=== PATIENT | female | born 1930 | race American Indian/Alaskan Native ===

== ENCOUNTER 2020-11-09 22:37 | Emergency (ER) | payer MEDICARE ==
--- NOTE | 2020-11-09 22:53 | Emergency Department Report ---
ED Fall HPI - General Stated Complaint: FALL/HEAD INJURY Time Seen by Provider: 11/09/20 22:42 Source: patient, old records reviewed (SNF records) Mode of arrival: Stretcher Limitations: No Limitations - History of Present Illness Initial Comments: Chief complaint: "I fell straight backwards." HPI: This is an 89-year-old female who presents with fall. Patient stood up and fell backwards. She struck her head on air conditioning unit. She has headache in the posterior region. She has neck pain, right shoulder pain, right rib cage pain. According to records provided per [facility] patient has history of dementia hypertension anxiety disorder constipation hyperlipidemia. Patient resides at [facility]. I have reviewed medications. Order also states that patient is DO NOT RESUSCITATE status. 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 Fall Witnessed: yes, by living facility s Place Fall Occurred: [facility] Prolonged Down Time?: no Symptoms Prior to Fall: none Location: head, neck, other (Right rib cage right shoulder) Severity: mild Quality: dull Context: tripped/slipped Associated Symptoms: headache, neck pain, other (Right shoulder right rib cage) - Related Data Previous Rx's Medication Instructions Recorded Last Taken Type oxyCODONE /ACETAMINOPHEN [Percocet 1 tab PO Q4HR PRN #20 tab 11/10/20 Unknown Rx 5/325] Allergies Allergy/AdvReac Type Severity Reaction Status Date / Time No Known Allergies Allergy Verified 11/10/20 00:00 ED Review of Systems ROS: Stated complaint: FALL/HEAD INJURY Other details as noted in HPI Comment: All other systems reviewed and negative Constitutional: denies: fever, malaise Respiratory: denies: cough, shortness of breath Cardiovascular: chest pain (Right rib cage) Gastrointestinal: denies: abdominal pain, nausea, vomiting Musculoskeletal: denies: back pain Neurological: denies: headache ED Past Medical Hx - Past Medical History Previous Medical History?: Yes Hx Hypertension: Yes Hx Psychiatric Treatment: Yes (Anxiety) Additional medical history: Dementia - Surgical History Additional Surgical History: Unable to obtain - Family History Family history: other (Noncontributory) - Social History Smoking Status: Unknown if ever smoked - Medications Home Medications: Home Medications Medication Instructions Recorded Confirmed Last Taken Type oxyCODONE /ACETAMINOPHEN [Percocet 1 tab PO Q4HR PRN #20 tab 11/10/20 Unknown Rx 5/325] ED Physical Exam - General Limitations: Other (Patient has history of dementia but is alert oriented to person place situation) General appearance: alert, in no apparent distress - Head Head exam: Present: atraumatic, normocephalic - Eye Eye exam: Present: normal appearance - ENT ENT exam: Present: mucous membranes moist - Neck Neck exam: Present: normal inspection, full ROM. Absent: tenderness, meningismus - Respiratory Respiratory exam: Present: normal lung sounds bilaterally, other (Tenderness in the anterior axillary line lateral to right breast). Absent: respiratory distress, wheezes, rales, rhonchi - Cardiovascular Cardiovascular Exam: Present: regular rate, normal rhythm, normal heart sounds. Absent: bradycardia, tachycardia, systolic murmur, diastolic murmur, rubs, gallop - GI/Abdominal GI/Abdominal exam: Present: soft, normal bowel sounds. Absent: distended, tenderness, guarding, rebound - Expanded Upper Extremity Exam Right Shoulder Exam: Present: full ROM, tenderness. Absent: swelling, abrasion, laceration, ecchymosis, deformity, crepidus, dislocation, erythema, tenderness over AC joint Upper Arm exam: Present: normal inspection, full ROM. Absent: tenderness, swe lling, abrasion, laceration, ecchymosis, deformity Elbow exam: Present: normal inspection, full ROM Forearm Wrist exam: Present: normal inspection, full ROM Hand Wrist exam: Present: normal inspection, full ROM - Back Exam Back exam: Present: normal inspection - Neurological Exam Neurological exam: Present: alert, other (Oriented to person place situation) - Psychiatric Psychiatric exam: Present: normal affect, normal mood - Skin Skin exam: Present: warm, dry, intact, normal color. Absent: rash ED Course Vital Signs 11/09/20 11/09/20 11/09/20 22:45 22:47 23:01 Temperature 98.3 F Pulse Rate 74 70 69 Respiratory 12 16 16 Rate Blood Pressure 180/96 168/98 Blood Pressure 180/99 [Left] O2 Sat by Pulse 98 97 98 Oximetry 11/09/20 11/09/20 11/10/20 23:15 23:45 00:01 Temperature Pulse Rate 68 70 70 Respiratory 12 15 Rate Blood Pressure 154/85 Blood Pressure [Left] O2 Sat by Pulse 97 97 98 Oximetry 11/10/20 11/10/20 00:11 00:12 Temperature Pulse Rate Respiratory 18 18 Rate Blood Pressure Blood Pressure [Left] O2 Sat by Pulse Oximetry ED Medical Decision Making - Radiology Data Radiology results: report reviewed Patient Name: PRAKASH REYNA Gender: Female Date of : 1930 Referring Provider: KELSEY MELTON Organization: [facility] Accession Number: [id number] Requested Date: November 09, 2020 22:48 Report Status: Final Requested Procedure: 1 Procedure Description: XR shoulder 2+V RT Modality: XR Findings Reporting MD: Wil Lam Dictation Time: November 09, 2020 22:26 Brickmason Contractor: Not available Numerical Analysis Group Manager Date: XR shoulder 2+V RT INDICATION / CLINICAL INFORMATION: shoulder pain fall. COMPARISON: None available. FINDINGS: No acute fracture of the shoulder. There are at least 3 few right lateral rib fractures. No pneumothorax identified. Normal alignment. Osteoarthrosis.No destructive osseous lesion or suspicious periosteal reaction. Impression: 1. Mildly displaced right lateral rib fractures. 2. No acute fracture or dislocation of the shoulder. Signer Name: Wil Lam MD Signed: 11/09/2020 10:26 PM Workstation Name: [id number] Patient Name: PRAKASH REYNA Gender: Female Date of : 1930 Referring Provider: KELSEY MELTON Organization: [facility] Accession Number: [id number] Requested Date: November 09, 2020 23:32 Report Status: Final Requested Procedure: 1 Procedure Description: CT head/brain wo con Modality: CT Findings Reporting MD: Wil Lam Dictation Time: November 09, 2020 23:05 Brickmason Contractor: Not available Numerical Analysis Group Manager Date: CT head/brain wo con, CT cervical spine wo con INDICATION: Pt fell backwards hitting head on an air conditioner, head pain. TECHNIQUE: CT head and cervical spine without contrast. All CT scans at this location are performed using CT dose reduction for ALARA by means of automated exposure control. COMPARISON: None. 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 Stern-white matter differentiation is maintained. No intracranial hemorrhage. No extra axial collection.. No hydrocephalus. No herniation. Sinuses: Paranasal sinuses and mastoid air cells are essentially clear. Orbits: Globes are intact Calvarium: No acute fracture. CERVICAL: Alignment: 2 mm degenerative anterolisthesis of C3 on C4 and 2 mm degenerative retrolisthesis of C4 on C5 and C5 on C6. Vertebrae: No fracture. Vertebral body heights are preserved. C1 and C2 are congruent. Atlantooccipital joint is maintained. Spondylolysis: Diffuse spondylosis with multilevel high-grade foraminal narrowing. Soft tissues: No prevertebral soft tissue thickening. Additional findings: No significant additional findings. IMPRESSION: 1. No acute intracranial abnormality. 2.No cervical spine fracture. Signer Name: Wil Lam MD [facility] [address] , [address] [place] [address] P [phone] F [phone] [facility] - Report exported on Nov 09, 2020 23:16:16 -0500 - Page 2 of 2 Signed: 11/09/2020 11:05 PM Workstation Name: [id number] Patient Name: PRAKASH REYNA Gender: Female Date of : 1930 Referring Provider: KELSEY MELTON Organization: [facility] Accession Number: [id number] Requested Date: November 09, 2020 23:47 Report Status: Final Requested Procedure: 1 Procedure Description: CT chest wo con Modality: CT Findings Reporting MD: Wil Lam Dictation Time: November 09, 2020 23:17 Brickmason Contractor: Not available Numerical Analysis Group Manager Date: CT chest wo con HISTORY: Fell backwards hitting head on an air conditioner, shoulder pain COMPARISON: None. TECHNIQUE: Chest CT exam. All CT scans at this location are performed using CT dose reduction for ALARA by means of automated exposure control. FINDINGS: CT CHEST: Lungs: Bilateral dependent atelectasis. Trachea and Bronchi: No significant abnormality. Mediastinum/Lymph nodes: No lymphadenopathy. Heart: Cardiac enlargement. Multivessel coronary atherosclerotic calcific effusions are present. Vasculature: Ascending aortic dilation measuring 4.2 cm.. Osseous Structures: Displaced right fourth through eighth lateral and posterior rib fractures. The sixth, seventh, and eighth ribs are fractured in both the posterior and lateral aspects. Additional Findings: None IMPRESSION: 1. Right mid segmental rib fractures, can correlate for flail chest. No pneumothorax. Signer Name: Wil Lam MD Signed: 11/09/2020 11:17 PM Workstation Name: [id number] - Medical Decision Making This is an 89-year-old female presents status post mechanical fall at [facility]. 1. Multiple rib fractures right-sided ribs 4 through 8: No evidence of flail chest on exam. Patient has normal vital signs. She appears comfortable without respiratory distress. Pulse ox 99% on room air. Heart rate 69 bpm respiratory rate 12 breaths/min. 2. Closed head injury: CT head indicated due to age: No evidence of traumatic intracranial abnormality 3. CT cervical spine ruled out cervical spine fracture indicated due to sistracting injury rib fractures 4. Right shoulder contusion without dislocation or fracture Patient is [facility] back to [facility] prescription for Percocet Critical care attestation.: If time is entered above; I have spent that time in minutes in the direct care of this critically ill patient, excluding procedure time. ED Disposition Clinical Impression: Multiple fractures of rib involving four or more ribs, Closed head injury, Cervical sprain, Contusion of right shoulder, Fall Disposition: [id number]/TX-70 ANOTHER TYPE HLTHCARE Is pt being admited?: No Does the pt Need Aspirin: No Condition: Stable Instructions: Rib Fracture Prescriptions: oxyCODONE /ACETAMINOPHEN [Percocet 5/325] 1 tab PO Q4HR PRN #20 tab PRN Reason: Pain , Severe (7-10)
[2020-11-09] MEDS ORDERED: IBUPROFEN 800 MG TAB PO ONE (22:55)
[2020-11-09] MEDS ORDERED: oxyCODONE /ACETAMINOPHEN 5-325MG TAB PO ONE (22:55)
--- NOTE | 2020-11-09 23:31 | XRay Report ---
XR shoulder 2+V RT INDICATION / CLINICAL INFORMATION: shoulder pain fall. COMPARISON: None available. FINDINGS: No acute fracture of the shoulder. There are at least 3 few right lateral rib fractures. No pneumotho rax identified. Normal alignment. Osteoarthrosis.No destructive osseous lesion or suspicious periost eal reaction. Impression: 1. Mildly displaced right lateral rib fractures. 2. No acute fracture or dislocation of the shoulder. Signer Name: Wil Lam MD Signed: 11/09/2020 11:26 PM Workstation Name: [id number]
--- NOTE | 2020-11-10 00:09 | Cat Scan Report ---
CT head/brain wo con, CT cervical spine wo con INDICATION: Pt fell backwards hitting head on an air conditioner, head pain. TECHNIQUE: CT head and cervical spine without contrast. All CT scans at this location are performed u sing CT dose reduction for ALARA by means of automated exposure control. COMPARISON: None. 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 Stern-white matter dif ferentiation is maintained. No intracranial hemorrhage. No extra axial collection.. No hydrocephalus. No herniation. Sinuses: Paranasal sinuses and mastoid air cells are essentially clear. Orbits: Globes are intact Calvarium: No acute fracture. CERVICAL: Alignment: 2 mm degenerative anterolisthesis of C3 on C4 and 2 mm degenerative retrolisthesis of C4 o n C5 and C5 on C6. Vertebrae: No fracture. Vertebral body heights are preserved. C1 and C2 are congruent. Atlantooccipi braulio joint is maintained. Spondylolysis: Diffuse spondylosis with multilevel high-grade foraminal narrowing. Soft tissues: No prevertebral soft tissue thickening. Additional findings: No significant additional findings. IMPRESSION: 1. No acute intracranial abnormality. 2.No cervical spine fracture. Signer Name: Wil Lam MD Signed: 11/10/2020 12:05 AM Workstation Name: [id number]
--- NOTE | 2020-11-10 00:21 | Cat Scan Report ---
CT chest wo con HISTORY: Fell backwards hitting head on an air conditioner, shoulder pain COMPARISON: None. TECHNIQUE: Chest CT exam. All CT scans at this location are performed using CT dose reduction for ALA RA by means of automated exposure control. FINDINGS: CT CHEST: Lungs: Bilateral dependent atelectasis. Trachea and Bronchi: No significant abnormality. Mediastinum/Lymph nodes: No lymphadenopathy. Heart: Cardiac enlargement. Multivessel coronary atherosclerotic calcific effusions are present. Vasculature: Ascending aortic dilation measuring 4.2 cm.. Osseous Structures: Displaced right fourth through eighth lateral and posterior rib fractures. The si xth, seventh, and eighth ribs are fractured in both the posterior and lateral aspects. Additional Findings: None IMPRESSION: 1. Right mid segmental rib fractures, can correlate for flail chest. No pneumothorax. Signer Name: Wil Lam MD Signed: 11/10/2020 12:17 AM Workstation Name: [id number]
[2020-11-10 04:39] VITALS: BP 163/88
== END 2020-11-10 02:40 | disposition other institution (70) ==
LOC: ED 22:37
DX: S22.49XA Multiple fractures of ribs, unspecified side, initial encounter for closed fracture (principal); S13.9XXA Sprain of joints and ligaments of unspecified parts of neck, initial encounter; S40.011A Contusion of right shoulder, initial encounter; S09.90XA Unspecified injury of head, initial encounter; I10 Essential (primary) hypertension; F41.9 Anxiety disorder, unspecified; F03.90 Unspecified dementia, unspecified severity, without behavioral disturbance, psychotic disturbance, mood disturbance, and anxiety; Z79.899 Other long term (current) drug therapy; W18.30XA Fall on same level, unspecified, initial encounter; Y93.89 Activity, other specified; Y92.89 Other specified places as the place of occurrence of the external cause; Y99.8 Other external cause status
CPT/HCPCS: 70450; 71250; 72125